=== PATIENT | female | born 1990 | race Caucasian/White ===

== ENCOUNTER 2025-03-01 13:42 | Emergency (ER) | payer MEDICAID ==
[~2025-03-01] VITALS: Ht 175.2 cm; Wt 107.5 kg
[2025-03-01] MEDS ORDERED: GABAPENTIN100 M2 PO (13:57)
[2025-03-01] MEDS ORDERED: TYLENOL EXTRA500 M2 PO (13:58)
[2025-03-01] MEDS ORDERED: Acetaminophen/Oxycodone 5 MG/325 MG TABLET PO ONE (14:15)
[2025-03-01] MEDS ORDERED: MELOXICAM15 MG PO (14:35)
== END 2025-03-01 14:43 | disposition home or self-care (01) ==
LOC: ED 13:42
DX: S09.90XA Unspecified injury of head, initial encounter (principal); Z88.0 Allergy status to penicillin; Z88.5 Allergy status to narcotic agent; W22.8XXA Striking against or struck by other objects, initial encounter; Y93.89 Activity, other specified; Y92.89 Other specified places as the place of occurrence of the external cause; Y99.8 Other external cause status